=== PATIENT | male | born 1990 | race Caucasian/White ===

== ENCOUNTER 2025-05-02 12:19 | Emergency (ER) | payer BC, SELFPAY ==
[2025-05-02 12:28] VITALS: BP 150/85; PULSE 84; RESP 20; TEMP 37.2; O2SAT 98
--- NOTE | 2025-05-02 12:28 | ED.ABDPAIN ---
HPI - Abdominal Pain General Chief Complaint: Abdominal Pain Stated Complaint: Pain Right Side, Abnormal Bowel Movement,Back Pain Time Seen by Provider: 05/02/25 12:38 Mode of arrival: ambulatory Limitations: no limitations History of Present Illness HPI narrative: 34-year-old male presents with concern for questions about his umbilical hernia. He also reports he has been having a fever bowel movements. He has had some chronic back pain. He was seen in the ER for lump in his belly button and was diagnosed with umbilical hernia. He was given referral for a surgeon med had not seen a surgeon yet. He reports he missed a bowel movement on Friday and only had a small bowel movement yesterday and was concerned this could be related to his hernia. He also reports he has chronic low back pain. Denies any injury to the back. He denies loss of bowel or bladder function, perianal anesthesia, weakness in any extremity, fever. He denies nausea, vomiting. He reports ibuprofen helps with his back pain. Patient has an appointment with general surgeon on June 09 elicited complaint: other (back pain) Related Data Allergies Allergy/AdvReac Type Severity Reaction Status Date / Time No Known Allergies Allergy Verified 05/02/25 12:35 Review of Systems Review of Systems: CONSTITUTIONAL: Denies malaise, chills, sweats, or fever. CARDIOVASCULAR: Denies chest pain, palpitations, or edema. RESPIRATORY: Denies cough or dyspnea. GASTROINTESTINAL: Denies abdominal pain, nausea, vomiting, diarrhea, bloody, or mucous stools. Reports less frequent stools than usual GENITOURINARY: Denies dysuria or hematuria. SKIN: Denies rash or itching. MUSCULOSKELETAL: Reports low back pain. Denies joint pain or myalgia. NEUROLOGIC: Denies numbness, weakness, or headache. PSYCHIATRIC: Denies anxiety or depression. All systems reviewed & are unremarkable except as noted in HPI and below PMFSH Comments At time of signature, agree with nursing past medical, surgical, social and family history. There is no relevant family history pertinent to the presenting complaint Exam Narrative: GENERAL: Well-appearing, well-nourished, and in no acute distress. HEAD: Normocephalic, atraumatic. EYES: PERRLA, sclera clear, and EOMI ENT: Nares clear. Mucous membranes moist. NECK: Supple. CHEST: No respiratory distress. Speaks in full sentences. HEART: Regular rate and rhythm. Normal peripheral pulses. ABDOMEN: Soft, nontender, nondistended, normal active bowel sounds, no palpable masses. EXTREMITIES: Normal range of motion. No edema. Normal strength and sensation. SKIN: Warm, dry, no visible rash. NEURO: Alert and oriented x3. No focal deficits. Cranial nerves II through XII grossly intact PSYCH: Normal mood and affect Course Course Emergency Course: Patient is aware of diagnosis, understands and agrees to treatment plan. Anticipatory guidance given. Patient agrees to follow-up as directed and is aware of reasons to seek care at the emergency department. Portions of this record may have been created with voice recognition software Level of Care: Express Care Visit Vital Signs Vital signs: Reviewed. MDM - Abdominal Pain MDM Narrative Medical decision making narrative: I evaluated this patient in the express care. History is obtained from patient who is an independent historian and physical exam was performed.? Available medical records were reviewed. ? Exam findings show no acute concerns or changes; patient is non-toxic appearing and is in no distress. ? Differential diagnosis and treatment plan were discussed with the patient. Patient agrees with discussion and after shared medical decision making agrees with plan of care. All questions were answered to the patient's satisfaction. Patient is appropriate for outpatient treatment and follow-up. Critical Care Time Critical Care Time Critical Care Time: No Discharge Plan Discharge Clinical Impression: Nonspecific low back pain Patient Disposition: Home Condition: Stable Instructions: Acute Low Back Pain (ED) Additional Instructions: Please keep your follow-up appointment with your surgeon for evaluation of your umbilical hernia. If you notice any abdominal pain, tenderness you should go to the emergency room. Please follow up with your Primary Care Doctor regarding her back pain. Walking and other gentle exercising several times a week has been shown to improve back pain; bed rest is not recommended. Take Motrin 800mg every 6-8 hours with food for the next 2-3 days, take muscle relaxers every 8 hours as needed for muscle spasm- do not drive or make any important decisions while on this medication for it can make you drowsy. You may apply heat or cold to the area as needed. If you experience any worsening pain, swelling, numbness, weakness please go to ER. Contact your doctor or go to the emergency department if you develop problems with bladder or bowel function, weakness or loss of feeling in one or both of your legs, or any other serious concerns. Patient Language: Slovenian Prescriptions: New cyclobenzaprine 10 mg tablet 10 mg PO TID PRN (Reason: muscle spasm) Qty: 20 0RF ibuprofen 800 mg tablet 800 mg PO Q6H PRN (Reason: pain) Qty: 30 0RF Follow-up/Referrals: Celso,Anders Marr MD [Primary Care Provider] - Stand Alone Forms: Work/School Release IP Time of Disposition: 12:46
--- OUTSIDE RECORDS SUMMARY | 2025-05-02 13:42 | XMS_ITS | Clinical Summary ---
Author Organization [facility] Address [address] [place] [address] Care Team Providers Care Linotype Mechanic Name Role Phone Anders Houston MD Primary Care Provider [phone] Allergies No known active allergies Medications erythromycin (ILOTYCIN) ophthalmic ointment Place a 1/2 inch ribbon of ointment into the lower eyelid. 1 g 0 Active cyclobenzaprine (FLEXERIL) 10 mg tablet Take 1 tablet (10 mg total) by mouth 3 (three) times a day as needed for muscle spasms 20 tablet 1 Active ibuprofen (ADVIL,MOTRIN) 600 mg tablet Take 1 tablet (600 mg total) by mouth every 6 (six) hours as needed for pain 30 tablet 1 Active arm brace misc 1 application daily 1 each 2 Active naproxen (ANAPROX DS) 550 mg tabletIndicatio ns:Pain Take 1 tablet (550 mg total) by mouth 2 (two) times a day with meals 14 tablet 4 Active naproxen (NAPROSYN) 500 mg tablet Take 1 tablet (500 mg total) by mouth 2 (two) times a day with meals 30 tablet 5 Active Active Problems Problem Noted Date Diagnosed Date Lumbar strain, initial encounter 06/29/2019 Encounters Date Type Department Care Team Description 04/29/2025 12:44 PM CDT - 04/29/2025 1:49 PM CDT Emergency [facility] Emergency Department [address] [place] [id number] Umbilical hernia without obstruction and without gangrene (Primary Dx) Discharge Disposition: Discharge to home or self care from Last 3 Months Social History Tobacco Use Types Packs/Day Years Used Date Smoking Tobacco: Every Day Cigarettes 1 4 Smokeless Tobacco: Never Alcohol Use Standard Drinks/Week Comments Not Currently 0 (1 standard drink = 0.6 oz pur e alcohol) Personal Safety Answer Date Recorded Have you ever been in or are you currently in a harmful physical or emotional relationship or is someone making you feel afraid or unsafe? 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 Gender Identity Not on file Sexual Orientation Not on file Obstetrics History Last Filed Vital Signs Vital Sign Reading Time Taken Comments Blood Pressure 152/79 04/29/2025 12:27 PM CDT Pulse 82 04/29/2025 12:27 PM CDT Temperature 36.6 C (97.8 F) 04/29/2025 12:27 PM CDT Respiratory Rate 18 04/29/2025 12:27 PM CDT Oxygen Saturation 96% 04/29/2025 12:27 PM CDT Inhaled Oxygen Concentration - - Weight 86.2 kg (190 lb) 04/29/2025 12:27 PM CDT Height 182.9 cm (6') 04/29/2025 12:27 PM CDT Body Mass Index 25.77 04/29/2025 12:27 PM CDT Plan of Treatment Health Maintenance Due Date Last Done Comments Depression Screening 1991 Hepatitis C Screening 1991 Varicella Vaccines (2 of 2 - 13+ 2-dose series) 10/27/2007 07/01/2007 Regular Well Visit/Exam 18-64 2009 Pneumococcal vaccine <65 (1 of 2 - PCV) 2010 Influenza Vaccine (Season Ended) 2025 09/29/2007 DTaP/Tdap/Td Vaccine (6 - Td or Tdap) 05/02/2027 05/02/2017, 08/23/2002, 08/11/1995, Additional history exists Hepatitis B Screening Completed 10/11/2002, 002 HPV Vaccines Aged Out No longer eligi ble based on patient's age to complete this topic Insurance [facility] Care Teams Linotype Mechanic Relationship Specialty Start Date End Date Anders Houston MD PCP - General 04/30/17
--- OUTSIDE RECORDS SUMMARY | 2025-05-02 13:42 | XMS_ITS | Referral Summary ---
Author Organization [facility] Address [address] [place] [address] Care Team Providers Care Clipper Counters Name Role Phone Anders Houston MD Primary Care Provider [phone] Encounters Date Type Department Care Team Description 04/29/2025 12:44 PM CDT - 04/29/2025 1:49 PM CDT Emergency [facility] Emergency Department [address] [place], [place] [id number] Umbilical hernia without obstruction and without gangrene (Primary Dx) Discharge Disposition: Discharge to home or self care from Last 3 Months Allergies No known active allergies Medications erythromycin [...] Diagnosed Date Lumbar strain, initial encounter 06/29/2019 Social History Tobacco Use Types Packs/Day Years [...] on file 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
== END 2025-05-02 12:52 | disposition home or self-care (01) ==
PROVIDERS: Emergency Provider Nurse Practitioner; PCP Family Medicine
DX: M54.50 Low back pain, unspecified (principal)
CPT/HCPCS: 99203; G0463